=== PATIENT | female | born 1990 | race Hispanic/Latino ===

== ENCOUNTER 2019-07-25 21:57 | Emergency (ER) | payer BC ==
[2019-07-25] MEDS ORDERED: Sodium Chloride 0.9% 1,000 ML IV ONE (22:30)
--- NOTE | 2019-07-25 22:42 | EDM.PDOC ---
<Gillian Agustin - Last Filed: 07/25/19 23:51> ED HPI GENERAL MEDICAL PROBLEM - General Chief Complaint: Abdominal Pain Stated Complaint: PT HAS STOMACH PAIN Time Seen by Provider: 07/25/19 22:07 Source of Information: Reports: Patient History Limitations: Reports: No Limitations - History of Present Illness INITIAL COMMENTS - FREE TEXT/NARRATIVE: HISTORY AND PHYSICAL: History of present illness: Patient is a 29-year-old female presents to the ED today with concern of right lower quadrant pain since this morning and decreased appetite. Patient states she did deliver a baby vaginally 6 days ago which was an uncomplicated delivery and states that her entire was normal. Patient lives in [place] but delivered in [facility]. Patient states starting this morning she's had 10 out of 10 right lower quadrant pain that does radiate to around her umbilicus area. Patient denies any other health history or any abdominal surgeries. Patient states she has had low-grade fevers around 99 out of home. Patient denies chills, chest pain, shortness of breath, or cough. Denies headache, neck stiff ness, change in vision, syncope, or near syncope. Denies nausea, vomiting, diarrhea, constipation, or dysuria. Has not noted any blood in urine or stool. Review of systems: As per history of present illness and below otherwise all systems reviewed and negative. Past medical history: As per history of present illness and as reviewed below otherwise noncontributory. Surgical history: As per history of present illness and as reviewed below otherwise noncontributory. Social history: See social history for further information Family history: As per history of present illness and as reviewed below otherwise noncontributory. Physical exam: General: Patient is alert, oriented, and in no acute distress. Patient sitting comfortably on exam table. HEENT: Atraumatic, normocephalic, pupils equal and reactive bilaterally, negative for conjunctival pallor or scleral icterus, mucous membranes dry, TMs normal bilaterally, throat clear, neck supple, nontender, trachea midline. No drooling or trismus noted. No meningeal signs. No hot potato voice noted. Lungs: Clear to auscultation, breath sounds equal bilaterally, chest nontender. Heart: S1S2, regular rate and rhythm without overt murmur Abdomen: Soft, nondistended. Generalized severe pain with palpation of the abdomen with guarding and rebound. Exam of abdomen limited due to pain. Negative for masses or hepatosplenomegaly. Negative for costovertebral tenderness. Pelvis: Stable nontender. Genitourinary: Deferred. Rectal: Deferred. Skin: Intact, warm, dry. No lesions or rashes noted. Extremities: Atraumatic, negative for cords or calf pain. Neurovascular unremarkable. Neuro: Awake, alert, oriented. Cranial nerves II through XII unremarkable. Cerebellum unremarkable. Motor and sensory unremarkable throughout. Exam nonfocal. Notes: Dr. Romero has assumed care of patient and will follow remaining diagnostics and disposition. Voices understanding and is agreeable to plan of care. Denies any further questions or concerns at this time. Diagnostics: CBC, CMP, lipase, UA, lactate, blood cultures 2, abd/pelvic CT Therapeutics: Saline, Zofran, Morphine Prescription: Impression: Abdominal Pain Urinary Tract Infection Dehydration Plan: Definitive disposition and diagnosis as appropriate pending reevaluation and review of above. 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 ED EXAM, GENERAL - Physical Exam Exam: See Below (See dictation) Course - Vital Signs Last Recorded V/S: Last Vital Signs Temp 36.4 C 07/25/19 22:07 Pulse 90 07/25/19 22:07 Resp 16 07/25/19 22:07 BP 111/72 07/25/19 22:07 Pulse Ox 97 07/25/19 22:07 - Orders/Labs/Meds Orders: Active Orders 24 hr Category Date Time Status CULTURE BLOOD [BC] Stat Lab 07/25/19 22:56 Received CULTURE BLOOD [BC] Stat Lab 07/25/19 23:07 Received CULTURE URINE [RM] Stat Lab 07/25/19 22:15 Received Blood Culture x2 Reflex Set [OM.PC] Stat Oth 07/25/19 22:31 Ordered Labs: Laboratory Tests 07/25/19 07/25/19 07/25/19 Range/Units 22:15 22:15 23:07 WBC 10.55 (4.0-11.0) K/uL RBC 4.16 L (4.30-5.90) M/uL Hgb 12.7 (12.0-16.0) g/dL Hct 37.6 (36.0-46.0) % MCV 90.4 (80.0-98.0) fL MCH 30.5 (27.0-32.0) pg MCHC 33.8 (31.0-37.0) g/dL RDW Std Deviation 41.3 (28.0-62.0) fl RDW Coeff of Danny 13 (11.0-15.0) % Plt Count 231 (150-400) K/uL MPV 9.60 (7.40-12.00) fL Neut % (Auto) 74.8 (48.0-80.0) % Lymph % (Auto) 14.6 L (16.0-40.0) % [place] % (Auto) 8.3 (0.0-15.0) % Eos % (Auto) 2.1 (0.0-7.0) % Baso % (Auto) 0.2 (0.0-1.5) % Neut # (Auto) 7.9 H (1.4-5.7) K/uL Lymph # (Auto) 1.5 (0.6-2.4) K/uL [place] # (Auto) 0.9 H (0.0-0.8) K/uL Eos # (Auto) 0.2 (0.0-0.7) K/uL Baso # (Auto) 0.0 (0.0-0.1) K/uL Nucleated RBC % 0.0 /100WBC Nucleated RBCs # 0 K/uL Lactate (0.20-2.00) mmol/L Sodium (136-145) mmol/L Potassium (3.5-5.1) mmol/L Chloride (98-107) mmol/L Carbon Dioxide (21.0-32.0) mmol/L BUN (7.0-18.0) mg/dL Creatinine (0.6-1.0) mg/dL Est Cr Clr Drug Dosing mL/min Estimated GFR (MDRD) ml/min Glucose (74-106) mg/dL Calcium (8.5-10.1) mg/dL Total Bilirubin (0.2-1.0) mg/dL AST (15-37) IU/L ALT (14-63) IU/L Alkaline Phosphatase (46-116) U/L Total Protein (6.4-8.2) g/dL Albumin (3.4-5.0) g/dL Globulin (2.6-4.0) g/dL Albumin/Globulin Ratio (0.9-1.6) Lipase (73-393) U/L Urine Color YELLOW Urine Appearance SLT CLOUDY Urine pH 6.0 (5.0-8.0) Ur Specific [place] 1.020 (1.001-1.035) Urine Protein TRACE H (NEGATIVE) mg/dL Urine Glucose (UA) NEGATIVE (NEGATIVE) mg/dL Urine Ketones NEGATIVE (NEGATIVE) mg/dL Urine Occult Blood MODERATE H (NEGATIVE) Urine Nitrite NEGATIVE (NEGATIVE) Urine Bilirubin NEGATIVE (NEGATIVE) Urine Urobilinogen 0.2 (<2.0) EU/dL Ur Leukocyte Esterase MODERATE H (NEGATIVE) Urine RBC 90-100 (0-2/HPF) Urine WBC 60-70 (0-5/HPF) Ur Epithelial Cells FEW (NONE-FEW) Urine Bacteria FEW (NEGATIVE) Urine Mucus LIGHT (NONE-MOD) Urine HCG, Qual POSITIVE (NEGATIVE) 07/25/19 07/25/19 Range/Units 23:07 23:07 WBC (4.0-11.0) K/uL RBC (4.30-5.90) M/uL Hgb (12.0-16.0) g/dL Hct (36.0-46.0) % MCV (80.0-98.0) fL MCH (27.0-32.0) pg MCHC (31.0-37.0) g/dL RDW Std Deviation (28.0-62.0) fl RDW Coeff of Danny (11.0-15.0) % Plt Count (150-400) K/uL MPV (7.40-12.00) fL Neut % (Auto) (48.0-80.0) % Lymph % (Auto) (16.0-40.0) % [place] % (Auto) (0.0-15.0) % Eos % (Auto) (0.0-7.0) % Baso % (Auto) (0.0-1.5) % Neut # (Auto) (1.4-5.7) K/uL Lymph # (Auto) (0.6-2.4) K/uL [place] # (Auto) (0.0-0.8) K/uL Eos # (Auto) (0.0-0.7) K/uL Baso # (Auto) (0.0-0.1) K/uL Nucleated RBC % /100WBC Nucleated RBCs # K/uL Lactate 0.8 (0.20-2.00) mmol/L Sodium 140 (136-145) mmol/L Potassium 3.8 (3.5-5.1) mmol/L Chloride 103 (98-107) mmol/L Carbon Dioxide 25.3 (21.0-32.0) mmol/L BUN 11 (7.0-18.0) mg/dL Creatinine 0.9 (0.6-1.0) mg/dL Est Cr Clr Drug Dosing 77.67 mL/min Estimated GFR (MDRD) > 60.0 ml/min Glucose 101 (74-106) mg/dL Calcium 10.4 H (8.5-10.1) mg/dL Total Bilirubin 0.4 (0.2-1.0) mg/dL AST 23 (15-37) IU/L ALT 48 (14-63) IU/L Alkaline Phosphatase 139 H (46-116) U/L Total Protein 7.2 (6.4-8.2) g/dL Albumin 3.1 L (3.4-5.0) g/dL Globulin 4.1 H (2.6-4.0) g/dL Albumin/Globulin Ratio 0.8 L (0.9-1.6) Lipase 85 (73-393) U/L Urine Color Urine Appearance Urine pH (5.0-8.0) Ur Specific [place] (1.001-1.035) Urine Protein (NEGATIVE) mg/dL Urine Glucose (UA) (NEGATIVE) mg/dL Urine Ketones (NEGATIVE) mg/dL Urine Occult Blood (NEGATIVE) Urine Nitrite (NEGATIVE) Urine Bilirubin (NEGATIVE) Urine Urobilinogen (<2.0) EU/dL Ur Leukocyte Esterase (NEGATIVE) Urine RBC (0-2/HPF) Urine WBC (0-5/HPF) Ur Epithelial Cells (NONE-FEW) Urine Bacteria (NEGATIVE) Urine Mucus (NONE-MOD) Urine HCG, Qual (NEGATIVE) Meds: Medications Discontinued Medications Generic Name Dose Route Start Last Admin Trade Name Freq PRN Reason Stop Dose Admin Sodium Chloride 1,000 mls @ 999 mls/hr 07/25/19 22:30 07/25/19 22:58 Normal Saline IV 07/25/19 23:30 999 mls/hr BOLUS ONE Administration Ceftriaxone Sodium/Dextrose 1 50 mls @ 100 mls/hr 07/26/19 00:57 07/26/19 01: 03 gm/ Premix IV 07/26/19 01:26 100 mls/hr ONETIME ONE Administration Iopamidol 83 ml 07/26/19 00:09 07/26/19 00:10 Isovue Multipack-370 (76%) IVPUSH 07/26/19 00:10 83 ml ONETIME ONE Administration Ketorolac Tromethamine 30 mg 07/26/19 00:57 07/26/19 01:03 Toradol IVPUSH 07/26/19 00:58 30 mg ONETIME ONE Administration Morphine Sulfate 2 mg 07/25/19 22:43 07/25/19 22:58 Morphine IVPUSH 07/25/19 22:44 2 mg ONETIME ONE Administration Ondansetron HCl 4 mg 07/25/19 22:43 07/25/19 22:58 Zofran IVPUSH 07/25/19 22:44 4 mg ONETIME ONE Administration Departure - Departure Disposition: Home, Self-Care 01 Clinical Impression: UTI (urinary tract infection) Abdominal pain Qualifiers: Abdominal location: generalized Qualified Code(s): R10.84 - Generalized abdominal pain - Discharge Information Referrals: PCP,None [Primary Care Provider] - Forms: ED Department Discharge Additional Instructions: The following information is given to patients seen in the emergency department who are being discharged to home. This information is to outline your options for follow-up care. We provide all patients seen in our emergency department with a follow-up referral. The need for follow-up, as well as the timing and circumstances, are variable depending upon the specifics of your emergency department visit. If you don't have a primary care physician on staff, we will provide you with a referral. We always advise you to contact your personal physician following an emergency department visit to inform them of the circumstance of the visit and for follow-up with them and/or the need for any referrals to a consulting specialist. The emergency department will also refer you to a specialist when appropriate. This referral assures that you have the opportunity for followup care with a specialist. All of these measure are taken in an effort to provide you with optimal care, which includes your followup. Under all circumstances we always encourage you to contact your private physician who remains a resource for coordinating your care. When calling for followup care, please make the office aware that this follow-up is from your recent emergency room visit. If for any reason you are refused follow-up, please contact the [facility] emergency department at and ask to speak to the emergency department charge nurse. [address] [address] Please continue to take the Keflex that you have for your mastitis as this will also cover you for any urinary tract infection. A urine was sent for culture and if you need further antibiotics for the urine he will be contacted the next several days. Please use the ibuprofen you have for pain management and also add the tramadol/Ultram you have been given this evening from [employer] [facility] but please be aware that it may make you dizzy or drowsy. Please call and schedule follow-up appointment with your OB M.D. in [place] and/or follow-up with our doctors in the [facility] using resources given to above. To ER as needed as discussed <Esther Romero - Last Filed: 07/26/19 02:18> ED HPI GENERAL MEDICAL PROBLEM - History of Present Illness INITIAL COMMENTS - FREE TEXT/NARRATIVE: Dr. Romero dictating addendum note as I am the supervising physician on this case and I have assumed care of this case at [address] scan was endorsed to me to follow-up and earlier Dr. Castro from OB was consult at about choice of imaging and she felt that the presentation was very atypical for endometritis and that a CT scan would give us more information. On review of that study there is no gross evidence to tell us why the patient is having this pain is her appendix is normal and she has symmetrical mild hydroureter consistent with a recent and an enlarged uterus consistent with her state. There was some thickening of the endometrium but no other findings to explain the patient's pain. Her lab workup was all within normal limits as well except for a UA indicating a probable UTI. I will give her some Rocephin here for that and I have discussed these findings with Dr. Castro at 12: 47 AM. She agrees that we should proceed to do the ultrasound just to be complete. I discussed all these findings with the patient and significant other at bedside. I will also give her a dose of IV Toradol for pain. She is more comfortable in the room but she is still very tender with palpation of the entire abdominal area. According to nursing the patient had told him that the pain had gone down from a 10/10 to a 4/10 Dr Castro who is on-call for [employer]NA[employer] he came down just to examine the patient and reviewed the ultrasound. She says the patient's abdomen is very soft and it is not very impressive and there is no other signs objectively of endometritis. On the ultrasound she did not see anything that was concerning or worrisome. She has recommended to both me and the patient that the patient follow-up with her OB M.D. and the next 1-2 days for reevaluation and further care and to continue her antibiotics as it will both help her with her mastitis as well as any UTI that is going on. She tells me that she has 6 more days of the Keflex so I will not renew the prescription. Dr. Castro feels that this is appropriate treatment. The patient overall is feeling better and did ask for something other than the ibuprofen she has at home for pain and I will give her [facility] for tramadol/ Ultram and she is not breast-feeding Please add to impression above: History of mastitis on antibiotic therapy, Keflex ED ROS GENERAL - Review of Systems Review Of Systems: ROS reveals no pertinent complaints other than HPI. Departure - Departure Time of Disposition: 02:16 Condition: Fair
[2019-07-25] MEDS ORDERED: Ondansetron 4 MG/2 ML SDV IVPUSH ONE (22:43)
[2019-07-25] MEDS ORDERED: Morphine 2 MG/ML Syringe IVPUSH ONE (22:43)
[2019-07-25 23:29] LABS: BLOOD UREA NITROGEN,BUN 11 mg/dL (7.0-18.0); CARBON DIOXIDE,CO2 25.3 mmol/L (21.0-32.0); CHLORIDE,CL 103 mmol/L (98-107); GLUCOSE RANDOM 101 mg/dL (74-106); LIPASE 85 U/L (73-393); POTASSIUM,K 3.8 mmol/L (3.5-5.1); SODIUM,NA 140 mmol/L (136-145)
[2019-07-26] MEDS ORDERED: Iopamidol 755 MG/ML 500 ML Multipack Bottle IVPUSH ONE (00:09)
--- NOTE | 2019-07-26 00:36 | CT ---
INDICATION: Six days , lower abdominal pain TECHNIQUE: CT abdomen and pelvis acquired with 83 cc Isovue 370 IV contrast. COMPARISON: None FINDINGS: Lower chest: Unremarkable. Liver: Unremarkable. Spleen: Unremarkable. Pancreas: Unremarkable. Gallbladder and bile ducts: Unremarkable. Adrenal glands: Unremarkable. Kidneys: Mild bilateral hydronephrosis and hydroureter down to the level of the uterus. GI tract: Unremarkable. The appendix is normal. Vascular structures: Unremarkable. Lymph nodes: Unremarkable. Miscellaneous: Mild diastasis of the rectus abdominus. No free air or significant free fluid. Pelvic Organs: Enlarged uterus consistent with state. The endometrium measures 1.5 cm in width. Bones: Unremarkable for age. IMPRESSION: Mild bilateral hydronephrosis and hydroureter likely due to compression of the distal ureters by the enlarged uterus. Thickened endometrium. This may be due to hemorrhage or retained products of conception. Consider pelvic ultrasound for further evaluation. Please note that all CT scans at this facility use dose modulation, iterative reconstruction, and/or weight-based dosing when appropriate to reduce radiation dose to as low as reasonably achievable. Dictated by Alexandra Ware MD @ Jul 26 2019 12:20AM Signed by Dr. Alexandra Ware @ Jul 26 2019 12:34AM
[2019-07-26] MEDS ORDERED: cefTRIAXone 1 GM in Premix Bag 1 BAG IV ONE (00:57)
[2019-07-26] MEDS ORDERED: Ketorolac 30 MG/ML SDV IVPUSH ONE (00:57)
--- NOTE | 2019-07-26 02:13 | US ---
INDICATION: POST PELVIC PAIN PELVIC ULTRASOUND Technique: Multiple transabdominal sonographic images of the pelvis were performed. Comparison: 07/25/2019 CT abdomen and pelvis. Findings: There is expected mild enlargement of the uterus, which measures 15.6 x 6.9 x 13.0 centimeters. No uterine masses are identified. The endometrium measures 10 mm in thickness and appears relatively homogeneous. There is questionably a trace amount of hypoechoic material within the endometrial cavity. No abnormal color Doppler blood flow is seen within the endometrium to suggest retained products of conception. The ovaries appear normal bilaterally. Color and spectral Doppler blood flow is noted in both ovaries. No adnexal masses are evident. A trace amount of free fluid is seen in the right adnexal region, likely physiologic. IMPRESSION: 1. Expected mild uterine enlargement. 2. Question of trace hypoechoic fluid within the endometrial cavity. No definite evidence of retained products of conception. 3. Trace free fluid in the right adnexal region, most likely physiologic. JUS NAPIER MD [employer] Dictated by Isak Napier MD @ 07/26/2019 2:12:09 AM Dictated by: Isak Napier MD @ 07/26/2019 02:12:39 (Electronically Signed)
== END 2019-07-26 02:35 | disposition home or self-care (01) ==
LOC: MW.ED 21:57
DX: O86.20 Urinary tract infection following delivery, unspecified (principal); O99.285 Endocrine, nutritional and metabolic diseases complicating the puerperium; E86.0 Dehydration
CPT/HCPCS: 36415; 74177; 76856; 80053; 81001; 81025; 83605; 83690; 85025; 87040; 87086; 96361; 96365; 96375; 99285; J0696; J1885; J2270; J2405; J7040; Q9967; 99283